=== PATIENT | female | born 1960 | race Caucasian/White ===

== ENCOUNTER 2016-11-23 19:35 | Emergency (ER) | payer MEDICAID ==
[~2016-11-23] VITALS: Ht 162.6 cm; Wt 61.4 kg
[2016-11-23 19:48] VITALS: PULSE 73; RESP 26; O2SAT 100
--- NOTE | 2016-11-23 20:01 | ED.REPORT ---
HPI-Psychiatric Illness Date of Service Nov 23, 2016 ED Provider: Harry Barahona MD Pt is a 56 year old female with a hx of schizophrenic paranoia who was brought to the ED by police [place]. She reports that she was having a panic attack, and denies any recreational drug use. She is worried because her car and all of her belongings were taken by the police department. She continues to state that she wants to leave. She has no medical complaints. Nursing Notes Stated Complaint: MENTAL HEALTH EVAL,DRUG REHAB Chief Complaint: Psychiatric Complaint Nursing Notes Reviewed: Yes ([employer], meds not reconciled (they are unknown)) Allergies: Coded Allergies: codeine (Verified Allergy, Unknown, 11/23/16) General Time Seen by MD: 19:57 Chief Complaint Bizarre behavior Hx Obtained From: Patient, Police Arrived By: Police Onset Occurred: Onset unknown Symptom Duration: Duration unknown Severity: Current: No pain currently Severity: Maximum: No pain Similar Sx Previous: Yes Risk-Psychiatric Illness Suicide Risk Stratification Suicide Risk Factors - Adult: : Prior psych admission: Substance abuse RF Statements: Risk factors reviewed (not predictive (and unable to be certain of patient responses)) Past Medical History Past Medical History "Paranoid schizophrenia" (details unclear, per patient) Smoking History Current Every Day Smoker Social History Patient reportedly lives in [place] Alcohol Use: Denies alcohol use Drug Use: Denies drug use Review of Systems Constitutional: Denies: Chills, Fever, Malaise, Weakness - generalized GI: Denies: Abdominal pain, Constipation, Diarrhea, Nausea, Vomiting Skin: Denies Diaphoresis Neurologic: Denies: Change LOC, Dizziness, Headache, Weakness Psychiatric: Reports: Agitation, Anxiety, Change mental status, Stress Complete sys rev & neg: except as marked. Physical Exam Initial Vital Signs Vital Signs (First) Date Time Temp Pulse Resp B/P Pulse Ox O2 Delivery O2 Flow Rate FiO2 11/23/16 19:48 36.2 73 26 100 Room Air Initial VS: Reviewed, Unavailable (no BP, ordered), Vital signs normal Head / Eyes: Atraumatic, Normocephalic, PERRL ENT: Mucous membranes moist, Conjunctiva normal, No scleral icterus Neck: Supple, Non-tender, Full range of motion Respiratory: Breath sounds normal, Clear to auscultation, No respiratory distress Cardiovascular: Regular rate & rhythm, Heart sounds normal, Intact distal pulses Skin: Warm, Dry, No cyanosis General/Constitutional: Awake, Alert Behavior: Positive: Restless Appears older than stated age Pacing In constant motion, with odd motion of head, neck and extremities Neurologic: Oriented X3, No sensory deficits Abnormal Mood/Affect: Positive: Anxious, Flight of ideas, Labile, Pressured speech Abnormal Thinking / Perception: Positive: Insight abnormal, Judgment abnormal, Negative: Homicidal, no plan, Homicidal, with plan, Suicidal, no plan, Suicidal, with plan Able to answer questions, but extremely impaired judgment and insight. Patient demonstrates paranoia, and some components of delusional behavior-for example she claims that she was "held hostage by the police" Pressured, rapid speech. She has increased psychomotor kinetics and cannot sit still. She is costantly moving her head extremities, pacing around the room. Interpretation & Diagnostics Lab Results Interpretation Result Diagram: 11/23/16212911/23/162129 Test 11/23/16 21:30 11/23/16 22:15 White Blood Count 10.1th/mm3 (3.8-10.1) Red Blood Count 4.67mil/mm3 (3.90-5.20) Hemoglobin 14.8g/dL (12.0-15.6) Hematocrit 42.1% (35.0-46.0) Mean Corpuscular Volume 90.1fL (81-100) Mean Corpuscular Hemoglobin 31.7pg (27.0-35.0) Mean Corpuscular Hemoglobin Concent 35.2% (32.0-37.0) Red Cell Distribution Width 12.9% (12.3-15.4) Platelet Count 259bil/L (150-400) Neutrophils (%) (Auto) 74.2% (40-74) Lymphocytes (%) (Auto) 16.8% (14-46) Monocytes (%) (Auto) 8.0% (4-12) Eosinophils (%) (Auto) 0.5% (0-5) Basophils (%) (Auto) 0.3% (0-3) Sodium Level 136mEq/L (134-144) Potassium Level 4.0mEq/L (3.5-5.2) Chloride Level 97mEq/L (97-108) Carbon Dioxide Level 20mmol/L (18-29) Blood Urea Nitrogen 15mg/dL (6-24) Creatinine 0.72mg/dL (0.57-1.00) Estimat Glomerular Filtration Rate 121mL/min (>59) Glucose Level 113mg/dL (60-99) Calcium Level 9.8mg/dL (8.5-10.1) Total Bilirubin 0.4mg/dL (0.0-1.2) Aspartate Amino Transf (AST/SGOT) 27U/L (0-50) Alanine Aminotransferase (ALT/SGPT) 13U/L (0-32) Alkaline Phosphatase 77U/L (25-150) Total Protein 8.0g/dL (6.4-8.4) Albumin 4.7g/dL (3.4-5.0) Thyroid Stimulating Hormone (TSH) 3.330uIU/mL (0.450-4.500) Hold Metzger Top Tube Received (Received) Alcohols < 10mg/dL (0-10) Hold Urine Received (Received) Lab Results Interpretation: CBC and normal CMP normal TSH normal etoh Negative Tox positive for meth Re-Eval/Medical Decision Med Decision/Clinical Course This is a 56-year-old female brought by police for mental health evaluation. Apparently the police pulled the patient over with concern for drunk driving, but after further evaluation recommended a mental health evaluation. The patient is extremely fidgety and restless and cannot sit still. She has extremely pressured speech, but is able to give a somewhat disorganized history. She claims a previous history of schizophrenia, and mentions Risperdal -but is not sure what medications she is on. She talks about having recently discovered that someone is cheating on her, she lives in [place] did note to do so drove away. She was then staying in her car overnight. He denies suicidal or homicidal ideation, but again is very disorganized. She is also extremely paranoid. She is only marginally cooperative, refuses a breathalyzer and would not cooperate with staff initially. He has extremely limited insight and an absent judgment. It is our understanding of her car that she describes has been complicated by the police. She claims she has nowhere to go. She does mention that she may been detained psychiatrically in the past, but exactly when and where remains unclear. She reports she is visiting from [place]. She denied drug use, but given her some restlessness, pressured speech, a tox screen was obtained and is indeed positive for methamphetamines. The patient initially did successfully elope while we were waiting for a sitter. The police brought her back. She does not currently present adequately decisional capacity be safely discharged. At this point there is does appear to be a significant component of methamphetamines, so the plan is a period of observation to allow metabolism, and then permitted re-evaluation of the morning. Screening Labs are otherwise normal. No acute medical issues were identified. She is not admitted to suicidal or homicidality, and her current status and concern about grave disability. Again she last current decisional capacity, and her presentation appears to be complicated by a probable methamphetamine use. Patient is being turned over change of shift to Dr. Bauman. Source of Hx: Old records Differential Diagnosis: Positive: Substance abuse Counseled Regarding: Diagnosis, Lab results, When/why to return to ED Discharge & Departure Shift Change Sign-Out Patient Care Transferred: Yes Discussed Complaint(s): Yes Laboratory Evaluation: Back, reviewed by me Impression: Primary Impression: Methamphetamine abuse Additional Impression: Psychosis Psychosis type: unspecified psychosis type Qualified Code: F29 - Unspecified psychosis not due to a substance or known physiological condition Disposition: Home Discharge Condition All VS Reviewed: Yes Condition: Stable Care Transferred to: Dr. Bauman Care Transferred at: 00:00 Natty Attestation Portions of this note were transcribed by Alyssa Cade.. I, Dr. Barahona personally performed the history, physical exam and medical decision-making; I reviewed and confirmed the accuracy of the information in the transcribed note. Signed by:Natty Todd, 11/23/2016 [Time]. Harry Barahona MD Nov 23, 2016 20:01 SAMMI CADE Nov 23, 2016 20:30
[2016-11-23] MEDS ORDERED: LORazepam 2 mg Tablet PO PRN (20:45)
[2016-11-23 21:37] LABS: BASOPHILS % (AUTO) 0.3 % (0-3); EOSINOPHILS % (AUTO) 0.5 % (0-5); Mean Corpuscular Hemoglobin 31.7 pg (27.0-35.0); Mean Corpuscular Volume 90.1 fL (81-100); NEUTROPHILS % (AUTO) 74.2 % (40-74); Platelet Count 259 bil/L (150-400)
[2016-11-24] MEDS ORDERED: diphenhydrAMINE 50 mg Capsule PO ONE (00:35)
[2016-11-24] MEDS ORDERED: diphenhydrAMINE 25 mg Capsule PO ONE (00:40)
[2016-11-24 09:00] VITALS: BP 115/76; PULSE 76; RESP 21; O2SAT 98
== END 2016-11-24 12:10 | disposition home or self-care (01) ==
LOC: SED 19:35
DX: F15.159 Other stimulant abuse with stimulant-induced psychotic disorder, unspecified (principal); F20.0 Paranoid schizophrenia; F17.200 Nicotine dependence, unspecified, uncomplicated; Z88.5 Allergy status to narcotic agent
CPT/HCPCS: 36415; 80053; 81025; 82075; 84443; 85025; 99284; G0480